=== PATIENT | male | born 1965 | race Caucasian/White ===

== ENCOUNTER 2019-08-09 13:08 | Inpatient (IN) | payer MEDICAID ==
[~2019-08-09] VITALS: Ht 180.3 cm; Wt 75.4 kg
[2019-08-09 14:48] LABS: BASOPHILS % 1.3 % (0.0-2.0); EOSINOPHILS % 0.2 % (0.0-5.0); HEMATOCRIT. 48.4 % (42.0-52.0); HEMOGLOBIN. 16.5 g/dL (14.0-18.0); LYMPHOCYTES % 27.1 % (20.0-50.0); MEAN CORPUSCULAR VOLUME 99.8 fL (80.0-94.0); MEAN PLATELET VOLUME 7.3 fl (7.4-10.4); NEUTROPHILS % 62.4 % (40.0-76.0); PLATELET 138 x1000/uL (130-400); RED BLOOD CELL COUNT 4.85 mill/uL (4.7-6.1); RED CELL DISTRIBUTION WIDTH 15.6 % (11.6-14.6)
[2019-08-09 14:55] LABS: CHLORIDE 96 mEq/L (98-107)
[2019-08-09 15:26] LABS: ETHANOL BLOOD 494 mg/dL
[2019-08-09 17:04] LABS: CLARITY URINE CLEAR (CLEAR); COLOR URINE YELLOW (YELLOW); KETONES URINE 3+ (NEGATIVE); LEUKOCYTE ESTERASE URINE NEGATIVE (NEGATIVE); NITRITE URINE NEGATIVE (NEGATIVE); OCCULT BLOOD URINE TRACE (NEGATIVE); PROTEIN URINE 1+ (NEGATIVE); SPECIFIC GRAVITY URINE 1.009 (1.005-1.030); UROBILINOGEN URINE 0.2 E.U./dL (0.2-1.0)
[2019-08-09 17:37] LABS: *AMPHETAMINES SCREEN URINE NEGATIVE (NEGATIVE); *BARBITURATES SCREEN URINE NEGATIVE (NEGATIVE); *COCAINE SCREEN URINE NEGATIVE (NEGATIVE); METHADONE URINE SCREEN NEGATIVE (NEGATIVE); OPIATES URINE SCREEN NEGATIVE (NEGATIVE)
[2019-08-09 17:38] LABS: *BENZODIAZEPINES SCREEN URINE NEGATIVE (NEGATIVE); CANNABINOID URINE SCREEN NEGATIVE (NEGATIVE); PHENCYCLIDINE URINE SCREEN NEGATIVE (NEGATIVE)
[2019-08-10] MEDS ORDERED: LORAZEPAM 2MG/ML CPJ IV STA (07:12)
[2019-08-10] MEDS ORDERED: SODIUM CHLORIDE 0.9% 1,000 ML IV ONE (07:12)
[2019-08-10] MEDS ORDERED: FOLIC ACID 1 MG, THIAMINE HCL 100 MG, MVI, ADULT NO.1 10 ML in DEXTROSE 5% WATER 1,000 ML IV ONE ×4 (07:45)
[2019-08-10] MEDS ORDERED: CHLORDIAZEPOXIDE 25MG CAPSULE PO ONE (07:45)
[2019-08-10] MEDS: CHLORDIAZEPOXIDE 10MG CAPSULE PO SCH (08:15)
[2019-08-10] MEDS ORDERED: LORAZEPAM 2MG/ML CPJ IV ONE ×4 (08:30→13:30)
[2019-08-10] MEDS ORDERED: LORAZEPAM 1MG TABLET PO ONE (08:30)
[2019-08-10] MEDS ORDERED: ONDANSETRON HCL 4MG/2ML INJ IV PRN (13:15)
[2019-08-10] MEDS ORDERED: ACETAMINOPHEN 325MG TABLET PO PRN (13:15)
[2019-08-10] MEDS ORDERED: NA PHOS,M-B/NA PHOS,DI-BA ENEMA 118ML PR PRN (13:15)
[2019-08-10] MEDS ORDERED: IPRATROPIUM/ALBUTEROL 0.5-3(2.5)MG/3ML NEB NEB PRN (13:15)
[2019-08-10] MEDS ORDERED: GUAIFENESIN 200MG/10ML SUGAR FREE UDC PO PRN (13:15)
[2019-08-10] MEDS ORDERED: CLONIDINE 0.1MG TABLET PO PRN (13:15)
[2019-08-10] MEDS ORDERED: MAGNESIUM/ALUMINUM HYDROXIDE/SIMETHICONE 30ML UDC PO PRN (13:15)
[2019-08-10] MEDS ORDERED: DIPHENHYDRAMINE 50MG/ML VIAL IV PRN (13:15)
[2019-08-10] MEDS ORDERED: DOCUSATE SODIUM 100MG CAPSULE PO PRN (13:15)
[2019-08-10] MEDS ORDERED: PROPRANOLOL HCL 20MG TABLET PO ONE (13:30)
[2019-08-10] MEDS ORDERED: PROPRANOLOL HCL 1MG/ML AMPULE IV ONE (13:30)
[2019-08-10] MEDS ORDERED: MORPHINE SULFATE 2 MG/ML CPJ (NOT FOR IM USE) IV PRN (16:14)
[2019-08-10] MEDS ORDERED: HYDROCODONE/ACETAMINOPHEN 5/325MG TABLET PO PRN (16:15)
[2019-08-10 17:29] LABS: CHLORIDE 98 mEq/L (98-107)
[2019-08-10] MEDS ORDERED: CITALOPRAM HYDROBROMIDE 10MG TABLET PO ONE (21:15)
[2019-08-10] MEDS: DEXT 5%/0.45% NACL KCL 10MEQ/L 1,000 ML IV SCH (23:35)
[2019-08-11] MEDS: DEXT 5%/0.45% NACL KCL 10MEQ/L 1,000 ML IV SCH ×2 (06:30→18:20)
[2019-08-11] MEDS: CHLORDIAZEPOXIDE 10MG CAPSULE PO SCH (09:15)
[2019-08-11] MEDS: ASPIRIN 81MG EC TABLET PO SCH (11:39)
[2019-08-11] MEDS: LORAZEPAM 2MG/ML CPJ IV PRN (15:12)
[2019-08-11] MEDS: ENOXAPARIN 40MG/0.4ML SYR SUBCUT SCH (15:32)
[2019-08-12] MEDS: DEXT 5%/0.45% NACL KCL 10MEQ/L 1,000 ML IV SCH (07:00)
[2019-08-12] MEDS: ASPIRIN 81MG EC TABLET PO SCH (09:00)
[2019-08-12] MEDS: ENOXAPARIN 40MG/0.4ML SYR SUBCUT SCH (09:00)
[2019-08-12 12:14] LABS: EOSINOPHILS % 1.8 % (0.0-5.0); HEMATOCRIT. 42.1 % (42.0-52.0); HEMOGLOBIN. 14.5 g/dL (14.0-18.0); LYMPHOCYTES % 24.5 % (20.0-50.0); MEAN CORPUSCULAR HEMOGLOBIN 34.2 pg (28.0-32.0); MEAN CORPUSCULAR VOLUME 99.2 fL (80.0-94.0); MONOCYTES % 13.2 % (2.0-8.0); NEUTROPHILS % 59.5 % (40.0-76.0); PLATELET 71 x1000/uL (130-400); RED BLOOD CELL COUNT 4.25 mill/uL (4.7-6.1); RED CELL DISTRIBUTION WIDTH 14.8 % (11.6-14.6)
[2019-08-12 12:21] LABS: CHLORIDE 104 mEq/L (98-107)
[2019-08-12 12:28] LABS: LDL CHOLESTEROL 72 mg/dL (5-100)
[2019-08-12 12:30] LABS: HDL CHOLESTEROL 66 mg/dL (40-59); T4 FREE 1.06 ng/dL (0.76-1.46)
[2019-08-12] MEDS: LORAZEPAM 2MG/ML CPJ IV PRN ×2 (16:13→21:14)
[2019-08-12 21:53] VITALS: BP 140/70
[2019-08-13] VITALS: BP 120/60
[2019-08-13 00:14] VITALS: BP 125/93
[2019-08-13] MEDS ORDERED: ZOLP10TA2 MT (00:20)
[2019-08-13] MEDS ORDERED: ESCI10TA MT (00:21)
[2019-08-13] MEDS ORDERED: TIOT18CA3 INH (00:23)
[2019-08-13] MEDS ORDERED: ZOLPIDEM TARTRATE 5MG TABLET PO PRN (00:45)
[2019-08-13] MEDS: DEXT 5%/0.45% NACL KCL 10MEQ/L 1,000 ML IV SCH ×2 (00:50→00:51)
[2019-08-13 04:00] VITALS: BP 121/81
[2019-08-13 08:00] VITALS: BP 130/89
[2019-08-13] MEDS: ASPIRIN 81MG EC TABLET PO SCH (09:21)
[2019-08-13] MEDS ORDERED: INFLUENZA VIRUS VACCINE(AFLURIA) 0.5ML SYR IM ONE (10:00)
[2019-08-13 12:00] VITALS: BP 121/84
[2019-08-13 16:00] VITALS: BP 118/75
== END 2019-08-13 18:00 | disposition home or self-care (01) | DRG 422 ==
LOC: ER 13:08 → EDBEDREQTM 08-10 20:20 → EDBEDREQ 08-10 20:20 → EDBEDREQTM 08-10 21:01 → EDBEDREQSVC 08-10 21:01 → 7WST 08-11 11:17 → ENRESERV 08-11 16:49 → CANRESERV 08-11 16:49 → ENRESERV 08-12 19:24 → CANRESERV 08-12 19:24 → ENRESERV 08-12 21:12
PROVIDERS: ADMIT Internal Medicine; ATTEND Internal Medicine
DX: E86.0 Dehydration (principal); R45.851 Suicidal ideations; R45.850 Homicidal ideations; F10.229 Alcohol dependence with intoxication, unspecified; F10.239 Alcohol dependence with withdrawal, unspecified; Y90.8 Blood alcohol level of 240 mg/100 ml or more; J44.9 Chronic obstructive pulmonary disease, unspecified; F32.9 Major depressive disorder, single episode, unspecified; I10 Essential (primary) hypertension; R00.0 Tachycardia, unspecified
CPT/HCPCS: 36415; 80061; 80305; 80307; 80320; 80329; 81003; 84439; 93005; 94640; 96365; 96366; 96375; 96376; 99284; J1650; J2060; J7620; G0480

== ENCOUNTER 2019-08-22 13:41 | Emergency (ER) | payer MEDICAID, OTHER ==
[~2019-08-22] VITALS: Ht 177.8 cm; Wt 82.0 kg
[~2019-08-22 13:41] MED LIST: ESCI10TA MT; TIOT18CA3 INH; ZOLP10TA2 MT
[2019-08-22] MEDS ORDERED: ALBUTEROL (0.083%) 2.5MG/3ML NEB HHN STA (16:23)
[2019-08-22] MEDS ORDERED: IPRATROPIUM BROMIDE (0.02%) 0.5MG/2.5ML NEB HHN STA (16:23)
[2019-08-22] MEDS ORDERED: METHYLPREDNISOLONE SOD SUCC 125 MG/2 ML VIAL IV STA (16:23)
[2019-08-22] MEDS ORDERED: SODIUM CHLORIDE 0.9% 1,000 ML IV ONE (16:23)
[2019-08-22 17:06] LABS: CHLORIDE 95 mEq/L (98-107)
[2019-08-22 17:10] LABS: ETHANOL BLOOD 248 mg/dL
[2019-08-22 17:38] LABS: BASOPHILS % 0.9 % (0.0-2.0); HEMATOCRIT. 42.4 % (42.0-52.0); HEMOGLOBIN. 14.6 g/dL (14.0-18.0); LYMPHOCYTES % 18.2 % (20.0-50.0); MEAN CORPUSCULAR HEMOGLOBIN 34.4 pg (28.0-32.0); MEAN CORPUSCULAR VOLUME 100.1 fL (80.0-94.0); MONOCYTES % 6.9 % (2.0-8.0); PLATELET 330 x1000/uL (130-400); RED BLOOD CELL COUNT 4.24 mill/uL (4.7-6.1); RED CELL DISTRIBUTION WIDTH 15.2 % (11.6-14.6)
[2019-08-22] MEDS ORDERED: LORAZEPAM 2MG/ML CPJ IV ONE ×2 (17:45→20:15)
[2019-08-22 18:50] LABS: CLARITY URINE CLEAR (CLEAR); COLOR URINE YELLOW (YELLOW); KETONES URINE 4+ (NEGATIVE); LEUKOCYTE ESTERASE URINE NEGATIVE (NEGATIVE); NITRITE URINE NEGATIVE (NEGATIVE); OCCULT BLOOD URINE NEGATIVE (NEGATIVE); PH URINE 5.5 (4.5-8.0); PROTEIN URINE NEGATIVE (NEGATIVE); SPECIFIC GRAVITY URINE 1.029 (1.005-1.030); UROBILINOGEN URINE 0.2 E.U./dL (0.2-1.0)
[2019-08-22 19:05] LABS: *AMPHETAMINES SCREEN URINE NEGATIVE (NEGATIVE); *BARBITURATES SCREEN URINE NEGATIVE (NEGATIVE); *BENZODIAZEPINES SCREEN URINE PRESUMTIVE POSITIVE (NEGATIVE); *COCAINE SCREEN URINE NEGATIVE (NEGATIVE); CANNABINOID URINE SCREEN NEGATIVE (NEGATIVE); METHADONE URINE SCREEN NEGATIVE (NEGATIVE); OPIATES URINE SCREEN NEGATIVE (NEGATIVE); PHENCYCLIDINE URINE SCREEN NEGATIVE (NEGATIVE)
[2019-08-23] MEDS ORDERED: LORAZEPAM 1MG TABLET PO ONE ×2 (13:00→17:15)
[2019-08-23 19:41] VITALS: BP 145/86
== END 2019-08-23 20:01 ==
LOC: ER 13:53
DX: R45.851 Suicidal ideations (principal); J44.1 Chronic obstructive pulmonary disease with (acute) exacerbation; I10 Essential (primary) hypertension; J44.9 Chronic obstructive pulmonary disease, unspecified; F10.239 Alcohol dependence with withdrawal, unspecified; F17.200 Nicotine dependence, unspecified, uncomplicated; Y90.8 Blood alcohol level of 240 mg/100 ml or more
CPT/HCPCS: 36415; 71045; 80053; 80305; 80307; 80320; 80329; 81003; 82962; 85025; 93005; 94640; 96374; 96375; 99285; J2060; J2930; J7030; J7611; Z7610; 99284; G0480

== ENCOUNTER 2019-09-03 14:03 | Emergency (ER) | payer MEDICAID ==
[~2019-09-03] VITALS: Ht 180.3 cm; Wt 82.0 kg
[2019-09-03] MEDS ORDERED: IPRATROPIUM BROMIDE (0.02%) 0.5MG/2.5ML NEB HHN STA (15:19)
[2019-09-03] MEDS ORDERED: ALBUTEROL (0.083%) 2.5MG/3ML NEB HHN STA (15:19)
[2019-09-03] MEDS ORDERED: PREDNISONE 20MG TABLET PO STA (15:19)
[2019-09-03 17:15] LABS: BASOPHILS % 1.1 % (0.0-2.0); EOSINOPHILS % 0.1 % (0.0-5.0); HEMATOCRIT. 41.5 % (42.0-52.0); HEMOGLOBIN. 14.3 g/dL (14.0-18.0); LYMPHOCYTES % 33.9 % (20.0-50.0); MEAN CORPUSCULAR HEMOGLOBIN 34.4 pg (28.0-32.0); MEAN CORPUSCULAR VOLUME 99.8 fL (80.0-94.0); MEAN PLATELET VOLUME 6.7 fl (7.4-10.4); MONOCYTES % 5.5 % (2.0-8.0); NEUTROPHILS % 59.4 % (40.0-76.0); PLATELET 337 x1000/uL (130-400); RED BLOOD CELL COUNT 4.16 mill/uL (4.7-6.1); RED CELL DISTRIBUTION WIDTH 14.9 % (11.6-14.6)
[2019-09-03 17:20] LABS: CHLORIDE 101 mEq/L (98-107)
[2019-09-03 17:26] LABS: ETHANOL BLOOD 185 mg/dL
[2019-09-03 17:51] LABS: CLARITY URINE CLEAR (CLEAR); COLOR URINE YELLOW (YELLOW); KETONES URINE 2+ (NEGATIVE); LEUKOCYTE ESTERASE URINE NEGATIVE (NEGATIVE); NITRITE URINE NEGATIVE (NEGATIVE); OCCULT BLOOD URINE NEGATIVE (NEGATIVE); PH URINE 6.5 (4.5-8.0); PROTEIN URINE NEGATIVE (NEGATIVE); SPECIFIC GRAVITY URINE 1.008 (1.005-1.030)
[2019-09-03 18:02] LABS: *AMPHETAMINES SCREEN URINE NEGATIVE (NEGATIVE); *BARBITURATES SCREEN URINE NEGATIVE (NEGATIVE); *BENZODIAZEPINES SCREEN URINE NEGATIVE (NEGATIVE); *COCAINE SCREEN URINE NEGATIVE (NEGATIVE); METHADONE URINE SCREEN NEGATIVE (NEGATIVE)
[2019-09-03 18:03] LABS: CANNABINOID URINE SCREEN NEGATIVE (NEGATIVE); OPIATES URINE SCREEN NEGATIVE (NEGATIVE); PHENCYCLIDINE URINE SCREEN NEGATIVE (NEGATIVE)
[2019-09-03] MEDS ORDERED: LORAZEPAM 2MG/ML CPJ IV ONE (18:30)
[2019-09-03] MEDS ORDERED: LORAZEPAM 2MG/ML CPJ IM ONE (19:30)
[2019-09-04] MEDS ORDERED: LORAZEPAM 2MG/ML CPJ IM ONE (08:45)
[2019-09-04] MEDS ORDERED: ONDANSETRON 4MG ODT PO ONE ×2 (08:45→19:00)
[2019-09-04] MEDS ORDERED: LORAZEPAM 1MG TABLET PO ONE (19:00)
[2019-09-05] MEDS ORDERED: LORAZEPAM 1MG TABLET PO ONE ×2 (13:00→20:15)
[2019-09-05] MEDS ORDERED: ONDANSETRON 4MG ODT PO ONE (13:00)
[2019-09-06] MEDS ORDERED: ONDANSETRON 4MG ODT PO ONE (12:15)
[2019-09-06] MEDS ORDERED: LORAZEPAM 1MG TABLET PO ONE ×2 (12:15→19:00)
[2019-09-06] MEDS ORDERED: LORAZEPAM 1MG TABLET PO NR (20:15)
[2019-09-07] MEDS: QUETIAPINE FUMARATE 50MG TABLET PO PRN (00:32)
[2019-09-07] MEDS ORDERED: LORAZEPAM 2MG/ML CPJ IM ONE (17:15)
[2019-09-07] MEDS ORDERED: LORAZEPAM 1MG TABLET PO ONE (21:00)
[2019-09-07] MEDS ORDERED: IPRATROPIUM BROMIDE (0.02%) 0.5MG/2.5ML NEB HHN STA (22:55)
[2019-09-07] MEDS ORDERED: ALBUTEROL (0.083%) 2.5MG/3ML NEB HHN STA (22:55)
[2019-09-07] MEDS ORDERED: ZOLPIDEM TARTRATE 5MG TABLET PO ONE (23:00)
[2019-09-08] MEDS: QUETIAPINE FUMARATE 50MG TABLET PO PRN (11:43)
[2019-09-08] MEDS ORDERED: NICOTINE 14MG PATCH TD ONE (13:00)
[2019-09-08] MEDS ORDERED: LORAZEPAM 1MG TABLET PO ONE (22:30)
[2019-09-09] MEDS ORDERED: LORAZEPAM 1MG TABLET PO ONE (12:45)
[2019-09-09] MEDS ORDERED: NICOTINE 7MG PATCH TD ONE (18:15)
[2019-09-09 19:01] VITALS: BP 128/86
== END 2019-09-09 19:12 ==
LOC: ER 14:03
DX: J44.1 Chronic obstructive pulmonary disease with (acute) exacerbation (principal); R45.851 Suicidal ideations; F32.9 Major depressive disorder, single episode, unspecified; I10 Essential (primary) hypertension; F10.229 Alcohol dependence with intoxication, unspecified; Z59.0 Homelessness; Z79.899 Other long term (current) drug therapy; Y90.6 Blood alcohol level of 120-199 mg/100 ml
CPT/HCPCS: 36415; 71045; 80053; 80305; 80307; 80320; 81003; 83880; 85025; 94640; 96372; 99284; J2060; J7512; J7611; Q0162; Z7610; G0480